=== PATIENT | female | born 1995 | race Hispanic/Latino ===

== ENCOUNTER 2017-08-25 19:11 | Emergency (ER) | payer BC, OTHER ==
[2017-08-25 19:31] LABS: Bilirubin Negative (Negative); Blood, Urine Large (Negative); Clarity CLOUDY (Clear); Glucose, Urine (Dipstick) Negative (Negative); Leukocyte Moderate (Negative); Nitrite Negative (Negative); Protein, Urine (Dipstick) Trace mg/dL (Neg-Trace); Specific Gravity, Urine 1.014 (1.002-1.036); Urobilinogen 0.2 mg/dL (0.2-1.0); pH, Urine 6.5 (5.0-9.0)
[2017-08-25 19:34] LABS: Bacteria/HPF 1+ HPF (None Seen); Hyaline Casts/LPF 4-6 HYALINE CAST LPF (0-3 Hyaline); Pathc Cast-AUWi Flag 1.45 (0-2.49)
[2017-08-25 19:35] LABS: Yeast-AUWi Flag 188.9 (0-25.0)
[2017-08-25 19:45] LABS: Yeast-All Forms None Seen HPF (None Seen)
[2017-08-25 20:02] LABS: #Basophils 0.1 thou/uL (0.0-0.2); #Eosinphils 0.3 thou/uL (0.0-0.7); #Lymphocytes 2.7 thou/uL (1.20-3.40); #Monocytes 0.7 thou/uL (0.11-0.59); #Neutrophils 5.2 thou/uL (1.40-6.50); %Basophils 0.6 % (0.0-1.0); %Lymphocytes 30.3 % (21.0-51.0); %Monocytes 7.6 % (0.0-10.0); %Neutrophils 58.5 % (42.0-75.0); Hemoglobin 12.9 g/dL (12.0-16.0); Mean Corpuscular HGB CONC 36.2 g/dL (32.0-36.0); Mean Corpuscular Hemoglobin 31.5 pg (27.0-31.0); Mean Corpuscular Volume 87.1 fL (78.0-98.0); Mean Platelet Volume 8.4 fL (7.4-10.4); Platelet Count 246 thou/uL (130-400); RBC Distribution Width 10.9 % (11.5-14.5); Red Blood Cell (RBC) Count 4.11 mill/uL (4.20-5.40); White Blood Cell (WBC) Count 8.9 thou/uL (4.8-10.8)
[2017-08-25 20:13] LABS: BHCG - Serum POSITIVE (NEGATIVE); Pregs Control Background? CLEAR/WHITE (CLR/WHITE); Pregs Control Bar Appear? YES (CONTROL BAR)
--- NOTE | 2017-08-25 21:07 | ULT ---
PELVIC ULTRASOUND: 08/25/17 HISTORY: 22-year-old female reporting spotting earlier today. TECHNIQUE: Multiplanar pina scale sonographic imaging of the pelvis obtained with transabdominal imaging. The ov torito are assessed with color flow/spectral analysis. FINDINGS: There is an intrauterine gestational sac present. The uterus measures 11.5 x 7.3 cm. There is a single pole within the gestational sac, demonstrating a heart rate of 165 beat s per minute. Right ovary measures approximately 3.5 x 1.9 cm and demonstrates normal blood flow. Left ovary measur es approximately 2.8 x 2.0 cm and demonstrates normal blood flow. BIOMETRY: BPD 1.4 cm 12 weeks, 0 days HC 6.3 cm 12 weeks, 3 days AC 5.2 cm 12 weeks, 1 day FL 0.7 cm 12 weeks, 2 days Average age based on ultrasound is 11 weeks, 5 days with estimated date of delivery on 03/11/18. There is a questionable very tiny area of subchorionic hemorrhage versus artifact, measuring in the 4 -5 mm range. IMPRESSION: Intrauterine gestation as detailed above. Questionable tiny subchorionic hemorrhage versus artifact. POS: [facility]
== END 2017-08-25 22:00 | disposition home or self-care (01) ==
LOC: ERS 19:11
DX: O20.9 Hemorrhage in early pregnancy, unspecified (principal); O23.41 Unspecified infection of urinary tract in pregnancy, first trimester; Z3A.12 12 weeks gestation of pregnancy
CPT/HCPCS: 36415; 76815; 81003; 81015; 84702; 84703; 85025; 86900; 86901; 87086; 87480; 87491; 87510; 87591; 87660

== ENCOUNTER 2018-03-09 21:00 | Inpatient (IN) | payer OTHER ==
[2018-03-16 21:40] VITALS: BMI 37.5
--- NOTE | 2018-03-16 22:00 | PDOC.FPROB ---
FMR OB H&P: HPI - History of Present Illness Chief Complaint: Post dated Induction of labor History of Present Illness: 22 yo at 41w dated by LMP and 10w6d presenting for post dates IOL. has been uncomplicated Occasional contractions. No LOF, Bleeding. +FM No BUCK, vision changes or RUQ pain Primary Care Physician: Oumou FMR OB H&P: Current - Care : 1 Para: 0 Gestational age: 41w0d Due date: 03/09/18 Dating Criteria: LMP consistent with 10w6d US Total weight gain: 12 Course/Complications: None - OB Labs Blood type: O RH: positive Antibody Screen: negative HIV: negative RPR: negative HepBsAg: negative Rubella: immune Gonorrhea: negative Chlamydia: negative Pap Smear: NILM 1 hour gtt: 113 A1c: 5.0 GBS: negative - Anatomy Survey Anatomy survey: Male fetus Anterior placenta Normal anatomy FMR OB H&P: History - Past Medical History PMH: PCOS - OB History OB History: G1PO - SYSTEM ADMINISTRATOR History SYSTEM ADMINISTRATOR History: Menarche 12yo PCOS with irregular menses No h/o STI - Surgical History Sx History: Negative - Social History Social History: . Denies tobacco, ETOH or drugs - Family History Family History: Hypertension ( father ) Type 2 Diabetes ( father; brother )Hypothyroidism ( sister ). Fibromyalgia ( mother ). FMR OB H&P: Medications - Current Home Medications: Medication Instructions Recorded Confirmed Type PNV No.118/Iron Fumarate/FA 03/16/18 History [ 19 Chewable Tablet] Allergies/Adverse Reactions: Allergies Allergy/AdvReac Type Severity Reaction Status Date / Time No Known Allergies Allergy Verified 03/16/18 21:37 FMR OB H&P: ROS - Review of Systems General: reports: fatigue. denies: fever/chills Eyes: denies: scotomas ENT: denies: nasal congestion, rhinorrhea, sore throat Cardiovascular: reports: edema. denies: chest pain Respiratory: denies: cough, congestion, shortness of breath Gastrointestinal: denies: abdominal pain, vomiting, diarrhea Genitourinary (Female): denies: dysuria, vaginal discharge, vaginal pain, vaginal bleeding, contractions Musculoskeletal: denies: pain Neurologic: denies: numbness, headache Integumentary: denies: itching, rash Psychological: denies: depression, anxiety FMR OB H&P: Vital Signs - Heart Tones Baseline: 125 Variability: moderate Acceleration: present Deceleration: absent Category: category 1 [place] contractions every: Occasional FMR OB H&P: Physical Exam - Physical Exam General: NAD, awake, alert and oriented HEENT: normocephalic and atraumatic, MMM, no scleral icterus, good dention Neck: supple, FROM Chest: non-tender to palpation General: no respiratory distress Abdomen: soft, gravid, non-tender Musculoskeletal: normal gait and station Neurological: sensation to pain,touch and proprioception grossly normal Skin: no rash, good tugor Lymphatic: no unusual bruising or bleeding Psychiatric: intact recent and remote memory, good judgement and insight, normal mood and affect - Pelvic Exam Vulva: normal hair distribution, no lesions, no discharge, no blood, normal rugae Cervix: no masses SVE: 2/75/-3, soft, posterior Mao score: 5 Membranes: intact Presentation: cephalic Estimated Weight: 7 lbs FMR OB H&P: A/P - Problem List (1) Post-term , 40-42 weeks of gestation Current Visit: Yes Status: Acute Code(s): O48.0 - POST-TERM Assessment and Plan: Admit for induction of labor Mao score 5, will start induction with pitocin and cervical ripening balloon GBS negative Cephalic by sutures FHT reassuring Desires natural delivery without epidural Anticipate vaginal delivery Discussion: Date/Time: 03/16/18 267 This H&P was discussed with [] and [] who agree with the above documentation and plan.
[2018-03-16] MEDS ORDERED: Ondansetron PF 4 MG/2 ML Vial IVP PRN (22:10)
[2018-03-16] MEDS ORDERED: Lidocaine 1% (PF) 30 ML VIAL SC PRN (22:10)
[2018-03-16] MEDS ORDERED: Promethazine HCl 25 MG/ML VIAL IM PRN (22:10)
[2018-03-16] MEDS ORDERED: NS / Oxytocin 40 units/1000ml 1,000 ML IV PRN (22:10)
[2018-03-16 23:19] LABS: Hemoglobin 13.2 g/dL (12.0-16.0); Mean Corpuscular HGB CONC 33.7 g/dL (32.0-36.0); Mean Corpuscular Hemoglobin 29.9 pg (27.0-31.0); Mean Corpuscular Volume 88.9 fL (78.0-98.0); Platelet Count 195 thou/uL (130-400); RBC Distribution Width 12.5 % (11.5-14.5); Red Blood Cell (RBC) Count 4.41 mill/uL (4.20-5.40); White Blood Cell (WBC) Count 9.3 thou/uL (4.8-10.8)
[2018-03-16] MEDS ORDERED: Butorphanol Tartrate 1 MG/ML VIAL SLOW IVP PRN (23:34)
[2018-03-16] MEDS: NS w/ Oxytocin 10 units 500 ML IV SCH (23:43)
[2018-03-17] LABS: HBSAg Index 0.27 S/CO (0-0.99); Hep B Surf Ag Non-Reactive S/CO (NonReactive); Syphilis Antibody Nonreactive (Nonreactive); Syphilis Antibody Index 0.04 S/CO (<1.00 Non-Reactive)
--- NOTE | 2018-03-17 02:14 | PDOC.LDPN ---
Labor & Delivery Progress Note - Subjective Subjective: painful contractions - Objective Abnormal vital signs: 140s/80s, patient in some pain. In between cxn 133/77 General: breathing through contractions Uterine fundus: non tender [place] contractions every: 2-6 min Plan: continue plan of care, labor augmentation -: SIUP -cervical ripening balloon in place -GBS negative -Cephalic by sutures -FHT reassuring, baseline 130, early decel present -Desires natural delivery without epidural -Anticipate vaginal delivery -BP in between cxns 133/77; she has had a couple borderline 140/80s blood pressures (possibly during cxn), continue to monitor.
[2018-03-17] MEDS: Lactated Ringer's 1,000 ML IV SCH ×2 (07:45→15:10)
--- NOTE | 2018-03-17 07:58 | PDOC.LDPN ---
Labor & Delivery Progress Note - Subjective Subjective: comfortable - Objective Vital signs reviewed and normal: yes General: NAD, resting FHT: category 1, variability present [place] contractions every: q2-4 min Other exam findings: blood pressure have improved after stadol Plan: continue plan of care, labor augmentation, pitocin for augmentation -: Check @ 0645 SIUP -cervical ripening balloon still firmly in place -GBS negative -Cephalic by sutures -FHT reassuring, baseline 130, good accels, mod variability -Desires natural delivery without epidural -Stadol has helped make her more comfortable -Anticipate vaginal delivery -BP improved with stadol, WNL
--- NOTE | 2018-03-17 08:16 | PDOC.EVN ---
Event Note - Event Note Event Note: Vital signs reviewed and normal: yes General: NAD, resting FHT: 125/ periods of minimal but mostly moderate variability/ accels present/no decels category 1 [place] contractions every: q2-4 min Plan: continue plan of care, labor augmentation, pitocin for augmentation -: Check @ 0800 SIUP -cervical ripening balloon in vaginal vault, removed. Exam 3.5/50/-3 -GBS negative -Cephalic by US -FHT reassuring -Desires natural delivery without epidural -Stadol prn pain -Anticipate vaginal delivery
[2018-03-17] MEDS ORDERED: Butorphanol Tartrate 1 MG/ML VIAL SLOW IVP PRN (09:32)
[2018-03-17] MEDS: Butorphanol Tartrate 1 MG/ML VIAL SLOW IVP SCH (09:33)
--- NOTE | 2018-03-17 12:25 | PDOC.EVN ---
Event Note - Event Note Event Note: Repeat cervical check unchanged from previous. Baby is very high in pelvis. FHTS 125/moderate variability/accels present/no decels. Cat I Tracing Contractions irregular, q3-5min on 18 miu of pitocin Will give a pitocin break for 1 hr and restart at that time.
--- NOTE | 2018-03-17 14:38 | PDOC.LDPN ---
Labor & Delivery Progress Note - Subjective Subjective: comfortable, painful contractions - Objective Vital signs reviewed and normal: yes General: NAD, resting, breathing through contractions Uterine fundus: non tender Dilation: 2 Effacement: 75% Station: -3 FHT: category 1, variability present [place] contractions every: irregular Other exam findings: FHR: 120-130; no decels, accels present Resuscitative measures: maternal IV fluids Plan: continue plan of care, pitocin for augmentation -: sIUP - Check: / - Pit restarted at 1400 after almost 2 hours off pit - Will recheck in 2 hours - Continue to monitor VS - Stadol for pain PRN - Desires natural delivery without epidural Continue plan of care
--- NOTE | 2018-03-17 16:52 | PDOC.LDPN ---
Labor & Delivery Progress Note - Subjective Subjective: comfortable, painful contractions - Objective Vital signs reviewed and normal: yes General: NAD, resting, breathing through contractions Dilation: 2 Effacement: 75% Station: -3 FHT: category 1, variability present [place] contractions every: irregular Resuscitative measures: maternal IV fluids, maternal position change - Assessment (1) Post-term , 40-42 weeks of gestation Code(s): O48.0 - POST-TERM Current Visit: Yes Status: Acute Plan: continue plan of care, pitocin for augmentation -: sIUP - Check: /-3 - unchanged from last check - Will recheck in 2 hours again - Continue to monitor VS - Stadol for pain PRN - Desires natural delivery without epidural Continue plan of care Addendum - Attending - Attending Attestation Date/Time: 03/17/181808 I personally evaluated the patient and discussed the management with Dr. Berry I agree with the History, Examination, Assessment and Plan documented above with any addition or exceptions noted below. Cervix is 3.5/50/-3, soft, posterior FHTs-120s/moderate variability/accels present/no decels Contractions q 6-7min, pitocin at 10 miu No cervical change since 8am after balloon out. Unable to AROM due to baby being very high in pelvis and not well engaged Will continue to attempt induction with pitocin however discussed likely need for delivery for failed induction of labor. Last PO intake around 12pm. Will wait until 8pm and recheck at that time. Pt agreeable to plan.
[2018-03-17] MEDS: NS w/ Oxytocin 10 units 500 ML IV SCH (19:05)
[2018-03-17] MEDS ORDERED: CEFAZOLIN/Water 2 GM/20 ML SYRINGE SLOW IVP SCH (20:30)
[2018-03-17] MEDS ORDERED: Bicitra 30 ML UDCUP PO SCH (20:30)
[2018-03-17] MEDS ORDERED: Azithromycin 500 MG in Sodium Chloride 0.9% 250 ML 250 ML IVPB SCH (20:30)
--- NOTE | 2018-03-17 20:44 | PDOC.EVN ---
Event Note - Event Note Event Note: Cervix rechecked 3.5/50/-3. No change since 8am. FHT: 120/ moderate variability/accels present/no decels. Discussed with patient and spouse that we have had no change in cervix despite high dose pitocin. Unable to AROM due to station and head not well engaged. Pt would like to proceed with delivery due to failed induction of labor. Risks of delivery were discussed with patient and spouse, including but not limited to risk of bleeding, infection, damage to structures surrounding uterus, need for hysterectomy for life saving purposes. All questions were answered.
[2018-03-17] MEDS ORDERED: CEFAZOLIN 2 GM/50 ML-DEXTROSE 2 GM in Premix Bag 1 BAG IVPB SCH (20:45)
[2018-03-17] MEDS ORDERED: Fentanyl 100 MCG/2 ML VIAL ONE (22:15)
[2018-03-17] MEDS ORDERED: Morphine PF 1 MG/ML SYR ONE (22:15)
[2018-03-17] MEDS ORDERED: Ketorolac Tromethamine 30 MG/ML VIAL ONE (22:16)
[2018-03-17] MEDS ORDERED: ePHEDrine/0.9% NaCl/PF SYRINGE 50 mg/10 ml ONE (22:16)
[2018-03-17] MEDS ORDERED: Dexamethasone 4 mg/ml Vial ONE (22:16)
[2018-03-17] MEDS ORDERED: PHENYLEPHRINE-NS 100 MCG/ML 10 ML SYRINGE ONE (22:16)
[2018-03-17] MEDS ORDERED: Ondansetron PF 4 MG/2 ML Vial ONE (22:16)
[2018-03-17] MEDS ORDERED: Oxytocin 10 UNITS/ML VIAL ONE (22:16)
[2018-03-17] MEDS ORDERED: L&D-Morphine 4 MG/ML VIAL SLOW IVP PRN (22:53)
[2018-03-17] MEDS ORDERED: Promethazine HCl 25 MG SUPP PR PRN (22:53)
[2018-03-17] MEDS ORDERED: diphenhydrAMINE 50 MG/ML VIAL IVP PRN (22:53)
[2018-03-17] MEDS ORDERED: Ondansetron HCl/PF 4 MG/2 ML Vial IVP PRN (22:53)
[2018-03-17] MEDS ORDERED: Ondansetron PF 4 MG/2 ML Vial IVP PRN (22:53)
[2018-03-17] MEDS ORDERED: Naloxone HCl 0.4 mg/ml Vial IV PRN (22:53)
[2018-03-17] MEDS ORDERED: Promethazine HCl 25 MG/ML VIAL IM PRN (22:53)
[2018-03-17] MEDS ORDERED: HYDROmorphone 2 MG/ML VIAL SLOW IVP PRN (22:53)
[2018-03-17] MEDS ORDERED: Hydrocerin (Eucerin) Cream 120 gm Jar TOP PRN (22:53)
[2018-03-17] MEDS ORDERED: Meperidine HCl/PF 25 MG/ML VIAL SLOW IVP PRN (22:53)
[2018-03-17] MEDS ORDERED: Naloxone HCl 0.4 mg/ml Vial IVP PRN ×2 (22:53)
[2018-03-17] MEDS ORDERED: Ketorolac Tromethamine 30 MG/ML VIAL IVP SCH (23:00)
[2018-03-17] MEDS ORDERED: Communication Order-Pharmacy FS SCH (23:00)
--- NOTE | 2018-03-18 00:15 | PDOC.OPDEL ---
OB Operative/Delivery Note Delivery Dr/Surgeon: Oumou Assist: Sriram Pre-Delivery Diagnosis: arrest of dilation, medically indicated induction (late term induction of labor) Procedure/Post Delivery Dx: primary low transverse CS Weeks gestation: 41 Anesthesia: spinal - Findings A Sex: male Weight: 3.343 kg (7 lbs 6 oz) - 1 min: 7 - 5 min: 9 - Additional Findings/Plan Placenta delivered: spontaneous findings: low transverse hysterotomy without extension Compilations/Other Findings: Procedure Note Date of Procedure: 03/17/18 Attending Surgeon: Oumou Resident Surgeon: Sriram Procedure: Primary low transverse caesarean section Preoperative Diagnosis: 1)Late Term intrauterine 2)Arrest of dilation Postoperative Diagnosis: 1)Late Term intrauterine , delivered Anesthesia: spinal Indications: The patient is a 22 year old G1 female at 41weeks gestation who initially presented for a late term induction of labor, now with arrest of dilation, and presents currently for a primary low transverse section. Procedure in Detail: After risks, benefits, and alternatives were explained to the patient, she gave informed consent. Pre-operative antibiotics included Cefazolin 2 gram IV and Azithromicin 500mg IV. The patient was taken to the operating room and spinal anesthesia was initiated. She was placed in the supine position with a left tilt and prepped and draped in usual sterile fashion. A Pfannenstiel incision was made with a scalpel and carried down to the level of the fascia which was sharply nicked. The fascial cut was extended bilaterally using blunt dissection. The inferior and superior edges of the cut fascial edges were elevated with Leonel clamps and the underlying rectus muscles were sharply and bluntly dissected free. The recti were divided digitally and retracted manually. The peritoneum was entered bluntly and retracted manually. The Darian-O retractor was placed. A low transverse score was made with the scalpel and the uterus was entered in the midline with the scalpel. Clear fluid was seen. The hysterotomy was extended manually in the cephalocaudal direction. The infant was noted to be vertex and was delivered by vacuum assisted delivery with fundal pressure. Mouth and nares were bulb suctioned. Cord clamped and cut and grossly normal male infant was handed to waiting nurse. Cord blood was obtained. Placenta was spontaneously extracted, found to be intact with 3 vessel cord and discarded. The uterus was externalized and the endometrium was curetted with a dry lap. The uterus was closed with a running locking #1 Monocryl suture followed by a running non- locking #1 Monocryl imbricating suture,followed to two figure of eight stitches thrown using a #2 Monocryl. Following this hemostasis was noted. The abdomen was suctioned free of clots. The uterus was internalized and the hysterotomy was again noted to be hemostatic. The muscle was closed with a horizontal mattress stitch using an 0-Vicryl suture. The fascia was closed with a running non-locking 0-Vicryl suture. The subcutaneous tissue was irrigated and few bleeders bovied. The subcutaneous tissue was closed with three simple interrupted stitches using 3-0 Chromic. The skin was closed using a 3-0 Monocryl jeff suture. All counts were correct. The patient tolerated the procedure well and was taken to the recovery room in stable condition. Estimated Blood Loss: 850 ml Complications: None Findings: Grossly normal male infant with Apgars of 7 & 9. Grossly normal placenta with 3 vessel cord discarded. Drains: Daily to gravity draining clear urine Addendum - Attending - Attending Attestation Date/Time: 03/18/18 [id number] I performed the entire delivery assisted by Dr. Dawkins
[2018-03-18] MEDS ORDERED: HYDROcodone/Acetaminophen 5/325 mg Tablet PO PRN (01:29)
[2018-03-18] MEDS ORDERED: Adacel (T-DAP) 0.5 ML SYRINGE IM ONE (01:29)
--- NOTE | 2018-03-18 04:25 | PDOC.EVN ---
Event Note - Event Note Event Note: 0400 Mom is feeling well, states she is a little light headed. Has been snuggling baby. Normal lochia. O: P 102, R 20, BP 120/60, T 97.7 Eyes: PERRLA HR: RR, no murmurs rubs or gallops, no edema, pulses 2+ bilat Lungs: BCTA Abd: soft, appropriately TTP, fundus firm A&P S/P for failure to progress -continue routine post care -Morning labs to include H/h -Continue to monitor
[2018-03-18] MEDS: Lactated Ringer's 1,000 ML IV SCH (04:59)
[2018-03-18 07:18] LABS: Hemoglobin 9.6 g/dL (12.0-16.0); Mean Corpuscular HGB CONC 33.3 g/dL (32.0-36.0); Mean Corpuscular Volume 90.3 fL (78.0-98.0); Mean Platelet Volume 10.8 fL (7.4-10.4); Platelet Count 191 thou/uL (130-400); RBC Distribution Width 12.3 % (11.5-14.5); Red Blood Cell (RBC) Count 3.18 mill/uL (4.20-5.40); White Blood Cell (WBC) Count 16.7 thou/uL (4.8-10.8)
--- NOTE | 2018-03-18 07:20 | PDOC.PP ---
Post Progress Note Post Day #: 1 Subjective: 22 yo [id number] POD #1 s/p uncomplicated PLTCS for failed induction of labor/ arrest of dilation at 3.5cm Feeling well this morning. Pain is controlled. Feels mildly dizzy upon waking but otherwise feeling well PO intake tolerated: no (Has only had ice chips so far) Flatus: no Vital Signs (12 hours) Temp Pulse Resp BP Pulse Ox 03/18/18 04:30 98.0 F 113 H 18 116/56 L 03/18/18 03:00 97.7 F 88 20 120/60 03/18/18 01:55 97.6 F 69 20 120/60 99 Weight Weight 90.265 kg - Physical Examination General: NAD Cardiovascular: no m/r/g, RRR Respiratory: non-labored breathing Abdominal: lochia (WNL), no distention, appropriately TTP Fundus firm & at: 1 cm below umbilicus Skin: CS incision dry & intact (Covered with clean bandage) Neurological: no gross focal deficits Psychiatric: A&Ox3, normal affect Result Diagrams: 03/16/18 23:09 Additional Labs: Post Labs Blood Type O POSITIVE 03/16/18 23:09 Hep Bs Antigen Non-Reactive S/CO (NonReactive) 03/16/18 23:09 (1) Post-term , 40-42 weeks of gestation Code(s): O48.0 - POST-TERM Status: Resolved (2) Status post delivery Code(s): Z98.891 - HISTORY OF UTERINE SCAR FROM PREVIOUS SURGERY Status: Acute - Assessment/Plan Stable POD #1 Doing well Urine output adequate. Advance diet as tolerate D/C [place] later today Encourage ambulation. Postop H+H pending. Continue routine postoperative care
[2018-03-18] MEDS: Ketorolac Tromethamine 30 MG/ML VIAL IVP PRN ×2 (09:24→15:29)
[2018-03-18] MEDS ORDERED: Sodium Chloride 0.9% 500 ML IV SCH (21:30)
--- NOTE | 2018-03-18 21:34 | PDOC.EVN ---
Event Note - Event Note Event Note: Called to patient bedside. Pt having pleuritic chest pain that she described as pressure substernal and left sided with sharp pains radiating to left shoulder with inspiration. Patient denies passing stool or flatus, but states she has voided. She states she has been eating/drinking well today. She states her shoulder hurts more when she moves her head. Lochia has been normal. O: T 98, P 114, BP 131/60, 96% on RA, R 20 HEENT: eyes perrla, sclera normal and non-icteric, MMM Cardiac: tachycardic, 1/6 systolic murmur, regular rhythm; cap refill >2 sec Chest: pain to palpation over sternum and left shoulder Lungs: BCTA Abdomen: Diffusely distended and very tender, fundus firm and above umbilicus. Incision dry and intact. Lochia WNL Extremities: no edema A&P: PE vs Constipation vs PPH vs other. O2 sats stable, so this is most likely not a PE. Patient abdomen is distended not on a bowel regimen. Will start Sen/doc and miralax regimen. Will recheck her H/H to check for worsening anemia/ developing PPH. 500 NS bolus as patient is tachycardic. Attending Note: 03/19/18 0030 Residents called to discuss case. STAT H&H ordered. If signs of blood loss anemia, recommend STAT CT scan. Continue IVFs, strict I/Os, and frequent vitals. Adán
[2018-03-18] MEDS ORDERED: Ketorolac Tromethamine 30 MG/ML VIAL IVP SCH (22:00)
[2018-03-18 22:36] LABS: Hemoglobin 6.5 g/dL (12.0-16.0); Mean Corpuscular HGB CONC 33.8 g/dL (32.0-36.0); Mean Corpuscular Hemoglobin 30.5 pg (27.0-31.0); Mean Corpuscular Volume 90.2 fL (78.0-98.0); Mean Platelet Volume 10.1 fL (7.4-10.4); Platelet Count 168 thou/uL (130-400); RBC Distribution Width 12.6 % (11.5-14.5); Red Blood Cell (RBC) Count 2.14 mill/uL (4.20-5.40); White Blood Cell (WBC) Count 9.2 thou/uL (4.8-10.8)
[2018-03-19] MEDS: Sodium Chloride 0.9% 1,000 ML IV SCH ×2 (00:42→10:30)
--- NOTE | 2018-03-19 01:51 | PDOC.EVN ---
Event Note - Event Note Event Note: S: Patient's pain refering to L shoulder initially improved with ambulating and belching, however patient's abdominal pain is worsening. She is still not passing flatus or had a BM. O: General: patient appears distressed and in pain. Crying at bedside Abdomen: soft, diffusely tender to palpation. Imaging: CT Abdomen/pelvis w and wo contrast showed large ventral pelvis hematoma, anterior to urinary bladder. [id number] cm. Discussed via phone by radiologist. Official report pending. A&P: -Discussed CT results with patient and Dr. Sheppard -Consulted Dr. Gurvinder Sheppard, Mohs Surgeon/General Dermatologist. Appreciate recommendations. Patient is to be taken back for hematoma evacuation via X-lap. -administer 2 units of blood -Continue to monitor Attending Note: 03/19/18 0100 Patient seen and evaluated. Dr. Sheppard consulted to assist with exploratory lap. Initiated transfusion protocol. Coags pending. R/B/A discussed. Consents signed. Questions and concerns addressed. Adán
[2018-03-19] MEDS ORDERED: Midazolam HCl 2 mg/2 ml Vial ONE (02:09)
[2018-03-19] MEDS ORDERED: Fentanyl 100 MCG/2 ML VIAL ONE ×2 (02:09→03:54)
[2018-03-19] MEDS ORDERED: CEFAZOLIN/Water 2 GM/20 ML SYRINGE SLOW IVP SCH (02:30)
[2018-03-19] MEDS ORDERED: Sodium Chloride 0.9% 10 ML ONE (02:32)
--- NOTE | 2018-03-19 02:44 | CON ---
DATE OF CONSULTATION: 03/19/2018 REASON FOR CONSULTATION: Acute abdominal pain and concern for acute postoperative intraabdominal bleeding and anemia. BRIEF HISTORY: Ms. Viola Flores is a patient of the family medicine residents, who was admitted on 03/16/2018 for a planned induction of labor for prolonged at 41 weeks. Her is reported uncomplicated. During the patient's induction of labor, a section was indicated. According to the residents and the patient's nurse, the patient had a failed induction at 3 cm and underwent an uncomplicated primary low-transverse section on March 17, 2018. On postoperative day #1, the patient complained of some dizziness, but review of postoperative progress notes is otherwise unremarkable. I was called at approximately 1:45 a.m. this morning after the patient's status was noted to have changed. I was called with the report of the patient with an acute abdomen that was exquisitely tender in a patient who was tearful, who had otherwise been stable. A CT scan had been ordered prior with a verbal report of an approximate 18-cm intrapelvic hematoma anterior to the uterus. Her hemoglobin was also noted to have decreased from approximately 13 at the time of admission to 9 this morning on postoperative day 1, to 6.5 on repeat at 2200 hours 03/18/2018. The findings were briefly discussed with me over the phone and I then went to see the patient with the family medicine residents. On arrival to the patient's room, she was tearful and in apparent distress due to her discomfort. She reported pain in her left shoulder that was radiating up her neck, pain taking deep breaths, and pain across her abdomen. She reported normal lochia. On physical exam, she was noted to have a tender abdomen. At this time, we discussed the findings of the imaging study as well as her decrease in her hemoglobin. I discussed the indication for diagnostic laparotomy with the patient as well as the indication for blood transfusion. Her spouse was at the bedside with the baby. Their questions were answered. The family medicine attending, Dr. Sarabia was notified as well as Anesthesia and the OR. Job ID: [id number] MTDD
[2018-03-19] MEDS ORDERED: Ondansetron HCl/PF 4 MG/2 ML Vial IVP PRN (03:09)
[2018-03-19] MEDS ORDERED: Promethazine HCl 25 MG/ML VIAL SLOW IVP PRN (03:09)
[2018-03-19] MEDS ORDERED: Promethazine HCl 25 MG/ML VIAL IM PRN ×2 (03:09→03:10)
[2018-03-19] MEDS ORDERED: Ondansetron PF 4 MG/2 ML Vial IVP PRN (03:10)
[2018-03-19] MEDS ORDERED: diphenhydrAMINE 50 MG/ML VIAL IVP PRN (03:10)
[2018-03-19] MEDS ORDERED: diphenhydrAMINE 50 MG/ML VIAL IM PRN (03:10)
[2018-03-19] MEDS ORDERED: Naloxone HCl 0.4 mg/ml Vial IV PRN (03:10)
[2018-03-19] MEDS ORDERED: Zolpidem Tartrate 5 MG TAB PO PRN (03:10)
[2018-03-19] MEDS ORDERED: diphenhydrAMINE 25 MG CAP PO PRN (03:10)
[2018-03-19] MEDS ORDERED: fentaNYL Citrate/PF 2,000 MCG in Sodium Chloride 0.9% 60 ML IV PRN (03:10)
[2018-03-19] MEDS ORDERED: Communication Order-Pharmacy FS SCH (03:15)
[2018-03-19] MEDS ORDERED: Albumin 25% 100 ML ONE (03:19)
[2018-03-19] MEDS ORDERED: diphenhydrAMINE 50 MG/ML VIAL ONE ×2 (03:30→13:49)
--- NOTE | 2018-03-19 03:36 | PDOC.OP ---
Operative Note - Operative Note Operative Note: Post Op Note PreOp Dx: POD2 1CS, hemoperitoneum, acute abdominal pain PostOp Dx: same Surgeon: DO Silver Assist: MD Cornell EBL: 800-1000ml formed clot UOP: 300ml Intraoperative transfusion 2U PRBCS and 1U FFP Procedure: Exploratory laparotomy, evacuation of clot,oversew of rectus abdominal muscle Findings: 800-1000ml formed clot intraperitoneal as well as above the between rectus fascia and muscle, small area of bleeding on rectus muscle, no acute bleeding process identified, hysterotomy hemostatic Post op: to PACU, [employer], serial CBC and coags, advance diet slowly, will comanage with FP service and OBH service
--- NOTE | 2018-03-19 04:39 | OP ---
DATE OF PROCEDURE: 03/19/2018 PREOPERATIVE DIAGNOSES: 1. Postop day #2 from primary low-transverse section. 2. Hemoperitoneum. 3. Acute abdomen. POSTOPERATIVE DIAGNOSES: 1. Postop day #2 from primary low-transverse section. 2. Hemoperitoneum. 3. Acute abdomen. PROCEDURE: Diagnostic laparotomy SURGEON: Gurvinder Sheppard DO NCR OPERATOR: Cuca Sarabia MD ANESTHESIA: GETA per Dr. Littleojhn. COMPLICATIONS: None. Intraoperative transfusion of 2 units of packed red blood cells and 1 FFP. URINE OUTPUT: 300 mL. ESTIMATED BLOOD LOSS: 800 to 1000 mL formed clot evacuated. No active bleeding during the surgical portion of the case. OPERATIVE FINDINGS: 1. 800 to 1000 mL of formed clot between the rectus abdominis muscles and fascia as well as in the peritoneal cavity. 2. Low transverse hysterotomy with hysterotomy closure intact and hemostatic. 3. Normal-appearing fallopian tubes and ovaries bilaterally. 4. Normal-appearing bladder. 5. Small amount of active bleeding noted on the rectus abdominis muscles to the right of midline, but was hemostatic after it was oversewn. 6. Normal-appearing postsurgical fascia. 7. Normal-appearing postsurgical subcutaneous tissue. PROCEDURE INDICATION: Ms. Viola Thomas was noted to have acute increase in her postsurgical abdominal pain with a drop in her hemoglobin late postoperative day #1 and was evaluated by the [facility]. I was consulted after a CT scan reported hemoperitoneum of approximately 18 cm formed fluid collection suspicious for clot and a noted drop in her hemoglobin from 9 to 6 earlier in the day. The patient was examined, noted to have an acute abdomen and was counseled for the indication for exploratory laparotomy. DESCRIPTION OF PROCEDURE: The patient was taken back to the OR with IV fluids running. When she was in the OR, she was placed in dorsal supine position. SCDs were placed on her lower extremities. A Daily catheter was placed and the abdomen was prepped with Betadine and draped in a normal fashion for exploratory laparotomy. Once the patient was asleep, the surgeons were scrubbed in. The Dermabond layer was removed from the skin. The previous Pfannenstiel skin incision was re- incised with a scalpel. The suture material was removed. Subcutaneous tissue was entered with a scalpel. After the subcutaneous layer was opened and the fascia was reached, oozing of blood in small mixed clot was noted between the fascial sutures. The fascial sutures were incised and removed. Immediately on entry to the fascia, large formed clots were evacuated from between the fascia and the rectus muscle. No obvious areas of bleeding were noted to this point in the case. The rectus muscles were closed with one mattress suture that was noted to be intact. The suture was removed. A significant amount of blood and clot were then evacuated from the peritoneal cavity. After the majority of the large clot was removed, an Darian O retractor was placed into the abdominal peritoneal cavity. The uterus was identified. The hysterotomy was inspected with no obvious bleeding noted. The peritoneal cavity was then copiously irrigated and suctioned dry with irrigation running clear. The pelvis, omentum, uterus, hysterotomy, and bladder were all inspected. No areas of bleeding were identified. The hysterotomy was inspected in detail with the hysterotomy sutures noted to be intact. After it was clear, there was no intraperitoneal process causing the bleeding. The Darian O retractor was removed from the abdominal cavity. The rectus muscle and fascia were inspected in detail with only a small area of bleeding noted from the right medial edge of the rectus fascia. This bleeding edge was oversewn with 2 [id number] sutures with hemostasis noted. The rectus muscle and fascia were noted to be infiltrated superficially with formed clot. The rectus muscles and fascia were copiously irrigated and very closely inspected. No distinct area of bleeding could be identified. The rectus muscles were suspicious for recent bleeding. After an extended period of observation, the hysterotomy was inspected again with no bleeding noted. There was no blood noted to have accumulated in the posterior or paracolic gutters. No blood was noted to have accumulated between the bladder and the uterus. A layer of FloSeal was applied over the rectus abdominis muscles. Pressure was applied over the hemostatic agent for 3 minutes as prescribed. After this was done, the clean sponge was removed and no areas of bleeding were noted. The rectus fascia was reapproximated from corner to corner and tied together in the midline with O PDS suture. Subcutaneous tissue was irrigated and dried with no areas of bleeding noted. Subcutaneous tissue was reapproximated with 3 interrupted chromic sutures. The skin was reapproximated with sterile stapler and a pressure dressing was applied. During the procedure, the patient received 2 units of packed red blood cells and 1 unit of FFP. Postoperative plans include serial CBC and coagulation panel. She has 2 additional units of packed red blood cells on hold. She received 2 g of Ancef during the procedure. The WEAVER HAND was ordered by anesthesia for postoperative pain management and the postoperative plan of care was reviewed with her primary team and the [facility]. The findings were discussed with the patient's family. Job ID: [id number] MTDD
[2018-03-19] MEDS ORDERED: Simethicone Chewable 80 MG TAB PO PRN (05:37)
[2018-03-19] MEDS ORDERED: Lanolin Ointment 7 GM TUBE TOP PRN (05:37)
[2018-03-19] MEDS ORDERED: Acetaminophen 325 MG TAB PO PRN (05:37)
[2018-03-19] MEDS ORDERED: Bisacodyl 10 MG SUPP PR PRN (05:37)
[2018-03-19 06:23] LABS: FSP-Qualitative ABNORMAL (Normal); FSP-Semiquantitative >=5 & <20 mcg/mL (Less than 5)
[2018-03-19 06:40] LABS: Fibrinogen 496 mg/dL (253-463)
[2018-03-19 06:42] LABS: PTT 30.7 SEC (22.9-36.1); Prothrombin Time 13.1 SEC (12.0-14.7)
[2018-03-19 06:54] LABS: Platelet Count 159 thou/uL (130-400)
--- NOTE | 2018-03-19 07:16 | PDOC.PP ---
Post Progress Note Post Day #: 2 Subjective: 22 yo [id number] POD #2 s/p PLTCS for failed induction of labor/arrest of dilation at 3.5cm, and POD 1 from exploratory laparotomy, evacuation of clot, oversew of rectus abdominal muscle s/p 2 units PRBCs and 1unit FFP. On exam this morning, patient is feeling well this morning. Pain is controlled. She states her mouth is dry. She is no longer having abdominal pain or pain between her shoulders. Patient resting in bed during exam. PO intake tolerated: yes Vital Signs (12 hours) Temp Pulse Resp BP Pulse Ox 03/19/18 06:30 111 H 20 131/68 96 03/19/18 05:55 97.4 F L 104 H 20 136/68 97 03/19/18 05:30 97 20 132/72 97 03/19/18 04:50 97.9 F 100 20 134/65 99 03/18/18 22:40 99.1 F 126 H 20 102/50 L 99 03/18/18 20:37 98.5 F 114 H 20 131/60 96 Weight Weight 90.265 kg - Physical Examination General: NAD Cardiovascular: no m/r/g, RRR Respiratory: clear to auscultation bilaterally, non-labored breathing Abdominal: + bowel sounds, no distention Fundus firm & at: level of umbilicus Skin: CS incision dry & intact, no rash (allergic reaction rash from betadine receding, present on bilateral upper thighs) Psychiatric: A&Ox3, normal affect Result Diagrams: 03/19/18 15:45 Additional Labs: Post Labs Blood Type O POSITIVE 03/16/18 23:09 Hep Bs Antigen Non-Reactive S/CO (NonReactive) 03/16/18 23:09 (1) Post-term , 40-42 weeks of gestation Code(s): O48.0 - POST-TERM Status: Resolved (2) Hemoperitoneum Code(s): K66.1 - HEMOPERITONEUM Status: Acute - Assessment/Plan POD #2 from PLTCS - Urine output adequate - Advance diet as tolerate - Encourage ambulation - Continue postoperative care - garden consultant POD 1 from ex lap for evacuation of hemoperitoneum CT showing 18cm hematoma - Patient's pain much improved this AM - Allergic reaction to betadine - will continue steroids today and dc tomorrow - Continue to monitor symptoms - Tylenol and motrin PRN for pain - Postop Hgb of 8 s/p 2 u PRBCs and 1 u FFP; Will re-evaluate for symtpoms later today Dispo: monitor symptoms, discharge in 1-2 days Case discussed with Dr. Sarabia Addendum - Attending - Attending Attestation Date/Time: 03/19/18 1000 I personally evaluated the patient and discussed the management with Dr. Berry I agree with the History, Examination, Assessment and Plan documented above with any addition or exceptions noted below. 22 yo female s/p PLTCS 2/2 failed IOL on 03/17/18 at 2255 HD#3 POD#2 - PLTCS POD#1 - ex lap 2/2 hemoperitoneum Patient still very sleep from surgery. Denies pain. Currently on JOB COACH/JOB DEVELOPER pump. Daily in place draining clear urine. Adequate UOP. Lochia appropriate. Pressure bandage in place. Hives resolving. VS reviewed. Labs reviewed. Imaging reviewed. s/p 2 uPRBC, 1 uFFP PE: Agree with resident documented PE. Sleepy. AAO x3. RRR. 2/6 systolic flow murmur. CTA bilaterally. Nontender abdomen. No rebound. Bandage clean and dry. No longer with hives to torso. Continues to have hives present to anterior upper thighs bilaterally. Daily in place. 1. s/p PLTCS 2/2 failed IOL with VA delivery: Routine pp care. Monitor for bowel activity. Risk for ilus. Pain controlled on JOB COACH/JOB DEVELOPER pump. 2. Hemoperitoneum s/p ex lap: EBL 1000 ml clot evacuated from rectus abdominus layer. Histerotomy intact and dry. Doing well. Pain controlled. Trend hemogram today. Transfuse as needed. Strict I/Os. Continue IVFs at this time. 3. Urticarial Reaction: Betadine prep from ex lap. Added to Allergies. Continue steroids today. Added H2 and oral antihistamine x 24 hours. 4. Risk for ilus: On narcotics along with 2 abdominal surgeries. Monitor closely. Advance food as tolerated. Start bowel regiment. 5. Blood loss anemia: Trend. Transfuse as needed. Attempt goal of 11/14. Consider iron infusion prior to d/c to home. 6. Mild consumptive coagulopathy: Coags pos. PLT stable. s/p uFFP. Monitor. 7. Breast feeding 8. Contraception: Unsure 9. BMI 38: If unable to ambulate tomorrow will start Lovenox. Otherwise continue SCDs for DVT ppx. Continue close inpatient monitoring. Trend labs today. Strict I/Os. Adán
[2018-03-19 07:49] LABS: Mean Corpuscular HGB CONC 33.1 g/dL (32.0-36.0); Mean Corpuscular Volume 87.7 fL (78.0-98.0); Mean Platelet Volume 10.2 fL (7.4-10.4); Platelet Count 163 thou/uL (130-400); RBC Distribution Width 13.6 % (11.5-14.5); Red Blood Cell (RBC) Count 2.75 mill/uL (4.20-5.40); White Blood Cell (WBC) Count 10.1 thou/uL (4.8-10.8)
[2018-03-19] MEDS: Lactated Ringer's 1,000 ML IV SCH ×2 (08:29→16:01)
[2018-03-19] MEDS: Ibuprofen 800 MG TAB PO SCH ×3 (08:29→21:39)
[2018-03-19] MEDS: Famotidine 20 MG TAB PO SCH ×2 (08:49→21:39)
[2018-03-19] MEDS: Loratadine 10 MG TAB PO SCH (08:49)
[2018-03-19] MEDS: Docusate Calcium (SURFAK) 240 MG CAP PO SCH ×2 (08:49→21:39)
[2018-03-19] MEDS: Prenatal Vitamin 1 TAB PO SCH (08:50)
[2018-03-19] MEDS ORDERED: Polyethylene Glycol 3350 17 GM Packet PO SCH (09:00)
[2018-03-19] MEDS ORDERED: Proctozone-HC 2.5% Cream 30 GM TUBE TOP SCH (09:00)
[2018-03-19] MEDS ORDERED: Senokot S 8.6-50 MG TAB PO SCH (09:00)
--- NOTE | 2018-03-19 09:24 | CT ---
PRELIMINARY REPORT/[facility]/EMERGENCY AFTER HOURS PROCEDURE: Addendum created by Aime Herrera MD on 03/19/2018 1:07 AM Central Time ([place] & En) Findings were discu ssed with ESTELITA ANDRE at 03/19/2018 1:07 AM CENSUS TAKER. Initial Report created on 03/19/2018 1:04 AM Central Time ([place] & En) EXAM: CT Abdomen and Pelvis With Contrast EXAM DATE/TIME: 03/19/2018 12:14 AM CLINICAL HISTORY: 22 years old, female; Pain; Abdominal pain; Acute; Patient HX: PT had done yesterday. Concr ened for intra abdominal bleeding. PT C/O pain and bloating. Pain has gotten worse since csect. No ot her surgery TECHNIQUE: Axial computed tomography images of the abdomen and pelvis with intravenous contrast. Coronal reforma tted images were created and reviewed. COMPARISON: No relevant prior studies available. FINDINGS: Lower thorax: No acute findings. ABDOMEN: Liver: Normal. No mass. Gallbladder and bile ducts: Normal. No calcified stones. No ductal dilation. Pancreas: Normal. No ductal dilation. Spleen: Normal. No splenomegaly. Adrenals: Normal. No mass. Kidneys and ureters: There is atrophy and parenchymal scarring of the left kidney. The right kidney i s unremarkable. Stomach and bowel: Normal. No obstruction. No mucosal thickening. Appendix: The appendix is unremarkable and seen best on axial image 45 of series 2. PELVIS: Bladder: Unremarkable as visualized. Reproductive: There is an enlarged uterus. ABDOMEN and PELVIS: Intraperitoneal space: See Soft Tissues Finding. Bones/joints: No acute fracture. No dislocation. Soft tissues: There are postoperative changes of likely recent section with small quantity of intraperitoneal free air or, soft tissue emphysema involving the ventral pelvic wall and subcutane ous edema or cellulitis of the ventral pelvic wall. There is discrete dense hematoma in the ventral p faviola with the hematoma measuring approximately 18.4 x 7.6 x 9.6 cm. There is additional mixed attenuation likely more dilute hemorrhage in the bilateral paracolic gutters extending up into the abdomen. No obvious IV contrast extravasation/active arterial bleeding within the region of hemat sandee. Vasculature: See Soft Tissues Finding. Lymph nodes: Normal. No enlarged lymph nodes. IMPRESSION: 1. There are postoperative changes of likely recent section with small quantity of intraperi toneal free air, soft tissue emphysema involving the ventral pelvic wall and subcutaneous edema or ce llulitis of the ventral pelvic wall. 2. There is discrete dense hematoma in the ventral pelvis with the hematoma measuring approximately 1 8.4 x 7.6 x 9.6 cm. There is additional mixed attenuation likely more dilute hemorrhage in the bilate ral paracolic gutters extending up into the abdomen. No obvious IV contrast extravasation/active arterial bleeding within the region of hematoma. Thank you for allowing us to participate in the care of your patient. Dictated and Authenticated by: Aime Herrera MD 03/19/2018 1:04 AM Central Time ([place] & En) FINAL REPORT EMERGENCY AFTER HOURS CT ABDOMEN AND PELVIS PERFORMED WITH CONTRAST ENHANCEMENT: Date: 03/18/18 HISTORY: Patient had a done yesterday. Concern for intra-abdominal bleeding. FINDINGS: The lung bases are clear. The liver, spleen, pancreas, and gallbladder regions all appear unremarkable. Right and left adrenal glands are normal in appearance. There is atrophy and scarring involving the l eft kidney with normal appearing right kidney. The left kidney only measures approximately 7.7 cm in length. No significant periaortic or mesenteric adenopathy. Small amount of fluid is seen adjacent to the liver with more pronounced free fluid in the paracolic gutter region. There is a large higher at tenuation mass which appears to be at least partially related to the rectus abdominus musculature and I feel this is almost entirely within the muscle, although the free fluid in the paracolic gutters c ould indicate some blood in this region. This would suggest a large hematoma. It measures 8.3 cm AP x 7.0 cm transverse and approximately 10.0 cm superior-inferior dimension. The uterus is enlarged, con sistent with recent . Free air within the abdomen is compatible with recent surgery. There a re some inflammatory changes within the fat along the anterior abdominal wall subcutaneous region. Th is is probably just related to the surgery. IMPRESSION: 1. Large hematoma which appears to involve the rectus abdominus muscle. There is also some free flui d within the abdomen, which could represent blood, but could be related to the recent . The free intraperitoneal air is also compatible with recent . 2. Enlarged uterus. 3. Scarred, atrophied left kidney. This report is in agreement with the preliminary report issued by [facility]. POS: [facility]
[2018-03-19 10:42] LABS: Hemoglobin 7.9 g/dL (12.0-16.0); Mean Corpuscular HGB CONC 33.7 g/dL (32.0-36.0); Mean Corpuscular Hemoglobin 29.8 pg (27.0-31.0); Mean Corpuscular Volume 88.4 fL (78.0-98.0); Mean Platelet Volume 9.9 fL (7.4-10.4); Platelet Count 160 thou/uL (130-400); RBC Distribution Width 13.9 % (11.5-14.5); Red Blood Cell (RBC) Count 2.65 mill/uL (4.20-5.40); White Blood Cell (WBC) Count 10.8 thou/uL (4.8-10.8)
[2018-03-19] MEDS ORDERED: PHENYLEPHRINE-NS 100 MCG/ML 10 ML SYRINGE ONE (13:49)
[2018-03-19] MEDS ORDERED: Dexamethasone 20 MG/5 ML VIAL ONE (13:49)
[2018-03-19] MEDS ORDERED: Succinylcholine Chloride 20 MG/ML 10 ml SYRINGE FS ONE (13:49)
[2018-03-19] MEDS ORDERED: Lidocaine 1% PF 5 ML VIAL ONE (13:49)
[2018-03-19] MEDS ORDERED: PROPOFOL 200 MG/20 ML VIAL ONE (13:49)
[2018-03-19] MEDS ORDERED: Glycopyrrolate 0.2 MG/ML 5 ML SYRINGE ONE (13:49)
[2018-03-19] MEDS ORDERED: Rocuronium Bromide 10 MG/ML (10ML VIAL) ONE (13:49)
[2018-03-19 15:58] LABS: Hemoglobin 7.8 g/dL (12.0-16.0); Mean Corpuscular HGB CONC 33.8 g/dL (32.0-36.0); Mean Corpuscular Volume 88.7 fL (78.0-98.0); Mean Platelet Volume 9.3 fL (7.4-10.4); Platelet Count 184 thou/uL (130-400); RBC Distribution Width 13.8 % (11.5-14.5); Red Blood Cell (RBC) Count 2.62 mill/uL (4.20-5.40); White Blood Cell (WBC) Count 11.9 thou/uL (4.8-10.8)
[2018-03-19] MEDS ORDERED: Lactated Ringer's 1,000 ML IV SCH (16:54)
[2018-03-19] MEDS ORDERED: Proctozone-HC 2.5% Cream 30 GM TUBE TOP PRN (16:58)
--- NOTE | 2018-03-19 18:18 | PDOC.OBPPN ---
FMR OB PN: Subj - Interval History Hospital Day: 3 Day: PPd/POD#2, POD#1 Chief Complaint: none Indentification: 22 yo s/p PLTCS on 03/17 and ex lap on 03/19 Interval History: Sitting in chair. Pain controlled. No bleeding. Lochia appropriate. FMR OB PN: Obj - Maternal Vital signs: BP: [129/61] HR: [121] RR: [20] Tmax: [98.2] Pox: [96]% on [RA] - Urine output I&O: 03/18/18 03/19/18 03/20/18 06:59 06:59 06:59 Intake Total 816 873 6943 Output Total 150 3400 3500 Balance 005 -6963 -2213 - Lochia Lochia: Mild. No clots. Appropriate. - Pain Management Pain scale: 4 Intervention: alternate pain modalities (BUILDING MAINTENANCE SUPERVISOR pump) FMR OB PN: Exam - Physical Exam General: NAD, awake, alert and oriented HEENT: normocephalic and atraumatic, PERRLA, EOMI, MMM, grossly normal hearing Neck: supple Chest: non-tender to palpation Deviation from normal: Increased HR. Regular. II/ systolic flow murmur. General: CTAB, no respiratory distress, good air movement, no rales/rhonchi, no wheezing, no retractions Abdomen: soft, fundus(cm) (Below -2), bowel sound present, no masses, no hernias Deviation from normal: Appropriately tender Musculoskeletal: normal gait and station, pulses present, FROM in all four extremities Skin: no rash : bandage intact, no erythema, no edema, appropriately tender Lymphatic: no unusual bruising or bleeding Psychiatric: intact recent and remote memory, good judgement and insight, normal mood and affect FMR OB PN: Data - Labs Lab results: Laboratory Results - last 24 hr 03/16/18 03/18/18 03/19/18 23:09 22:02 06:08 WBC 9.2 10.1 RBC 2.14 L 2.75 L Hgb 6.5 L 8.0 L Hct 19.3 L 24.1 L MCV 90.2 87.7 MCH 30.5 29.0 MCHC 33.8 33.1 RDW 12.6 13.6 Plt Count 168 163 MPV 10.1 10.2 PT INR APTT Fibrinogen Fibrin Degrad Products Fibrin Degrad Prod, Qt D-Dimer Blood Type O POSITIVE Antibody Screen NEGATIVE Crossmatch See Detail 03/19/18 03/19/18 03/19/18 06:12 10:13 15:45 WBC 10.8 11.9 H RBC 2.65 L 2.62 L Hgb 7.9 L 7.8 L Hct 23.4 L 23.2 L MCV 88.4 88.7 MCH 29.8 30.0 MCHC 33.7 33.8 RDW 13.9 13.8 Plt Count 159 160 184 MPV 9.9 9.3 PT 13.1 INR 1.0 APTT 30.7 Fibrinogen 496 H Fibrin Degrad Products ABNORMAL H Fibrin Degrad Prod, Qt >=5 & <20 H D-Dimer 5.60 H Blood Type Antibody Screen Crossmatch - Imaging Imaging: CT abdomen/pelvis: Postop changes. Discrete dense hematoma in the ventral pelvis measuring 18.4 x 7.6 x 9.6 cm. Dilute hemorrhage in bilateral pericolic gutters. FMR OB PN: A/P - Problem List (1) Post-term , 40-42 weeks of gestation Current Visit: Yes Status: Resolved Code(s): O48.0 - POST-TERM Comment: Delivered (2) Hemoperitoneum Current Visit: Yes Status: Acute Code(s): K66.1 - HEMOPERITONEUM Comment: Resolved. (3) Status post delivery Current Visit: Yes Status: Acute Code(s): Z98.891 - HISTORY OF UTERINE SCAR FROM PREVIOUS SURGERY Comment: 2/2 failed IOL on 03/17. Required vacuum assistance for delivery. (4) Urticaria Current Visit: Yes Status: Acute Code(s): L50.9 - URTICARIA, UNSPECIFIED Comment: Betadine reactive. Resolved. (5) Adult BMI 38.0-38.9 kg/sq m Current Visit: Yes Status: Acute Code(s): Z68.38 - BODY MASS INDEX (BMI) 38.0-38.9, ADULT Comment: Recommend lifestyle changes. (6) Intends to breastfeed Current Visit: Yes Status: Acute Code(s): [id number] - Comment: Consult (7) Blood loss anemia Current Visit: Yes Status: Acute Code(s): D50.0 - IRON DEFICIENCY ANEMIA SECONDARY TO BLOOD LOSS (CHRONIC) Comment: s/p 2u PRBC. Disposition: 22 yo female s/p PLTCS 2/2 failed IOL on 03/17/18 at 2255 HD#3 POD#2 - PLTCS POD#1 - ex lap 2/2 hemoperitoneum 1. s/p PLTCS 2/2 failed IOL with VA delivery: Routine pp care. Monitor for bowel activity. Risk for ilus. Pain controlled on BUILDING MAINTENANCE SUPERVISOR pump. 2. Hemoperitoneum s/p ex lap: EBL 1000 ml clot evacuated from rectus abdominus layer. Hysterotomy intact and dry. Doing well. Pain controlled. H&H/PLT stable. Transfuse as needed. Strict I/Os. d/c IVFs. 3. Urticarial Reaction: Betadine prep from ex lap. Added to Allergies. Continue steroids today. Added H2 and oral antihistamine x 24 hours. 4. Risk for ilus: On narcotics along with 2 abdominal surgeries. Monitor closely. Advance food as tolerated. Start bowel regiment. 5. Blood loss anemia: Trend. Transfuse as needed. Attempt goal of 11/14. Consider iron infusion prior to d/c to home. 6. Mild consumptive coagulopathy: Coags pos. PLT stable. s/p uFFP. Monitor. 7. Breast feeding 8. Contraception: Unsure 9. BMI 38: If unable to ambulate tomorrow will start Lovenox. Otherwise continue SCDs for DVT ppx. Discussion: Continue close inpatient monitoring. Trend labs today. Strict I/Os. Signature: Adán
[2018-03-20] MEDS: Ibuprofen 800 MG TAB PO SCH ×3 (05:48→23:04)
--- NOTE | 2018-03-20 07:14 | PDOC.PP ---
Post Progress Note Post Day #: 3 Subjective: NAEO. Patient states she feels much better this morning. Minimal pain noted. Controlled with FUR WEIGHER. Tolerating PO. Patient has been ambulating in the hallway. Denies lightheadedness, fever, chills, NVD, chest or abdominal pain, headache. PO intake tolerated: yes Flatus: yes Ambulation: yes Vital Signs (12 hours) Temp Pulse Resp BP Pulse Ox 03/20/18 03:31 97.7 F 87 18 105/53 L 03/20/18 00:05 98.1 F 99 18 115/57 L 03/19/18 20:36 98.0 F 99 20 132/64 97 Weight Weight 90.265 kg - Physical Examination General: NAD Cardiovascular: no m/r/g, RRR Respiratory: clear to auscultation bilaterally, non-labored breathing Abdominal: + bowel sounds, lochia (minimal), no distention, appropriately TTP Fundus firm & at: level of umbilicus Skin: CS incision dry & intact, no rash Neurological: no gross focal deficits Psychiatric: A&Ox3, normal affect Result Diagrams: 03/20/18 07:08 Additional Labs: Post Labs Blood Type O POSITIVE 03/16/18 23:09 Hep Bs Antigen Non-Reactive S/CO (NonReactive) 03/16/18 23:09 (1) Post-term , 40-42 weeks of gestation Code(s): O48.0 - POST-TERM Status: Resolved Comment: Delivered (2) Hemoperitoneum Code(s): K66.1 - HEMOPERITONEUM Status: Acute Comment: Resolved. (3) Adult BMI 38.0-38.9 kg/sq m Code(s): Z68.38 - BODY MASS INDEX (BMI) 38.0-38.9, ADULT Status: Acute Comment: Recommend lifestyle changes. (4) Intends to breastfeed Code(s): [id number] - Status: Acute Comment: Consult (5) Status post delivery Code(s): Z98.891 - HISTORY OF UTERINE SCAR FROM PREVIOUS SURGERY Status: Acute Comment: 2/2 failed IOL on 03/17. Required vacuum assistance for delivery. (6) Urticaria Code(s): L50.9 - URTICARIA, UNSPECIFIED Status: Acute Comment: Betadine reactive. Resolved. - Assessment/Plan 22 yo female s/p PLTCS 2/2 failed IOL on 03/17/18 at 2255 HD#4 POD#3 - PLTCS POD#2 - ex lap 2/2 hemoperitoneum s/p PLTCS 2/2 failed IOL with VA delivery Routine pp care. Monitor for bowel activity- bowel regimen in place. Risk for ilus. Pain controlled on FUR WEIGHER pump Hemoperitoneum s/p ex lap - EBL 1000 ml clot evacuated from rectus abdominus layer. Hysterotomy intact and dry. Doing well. Pain controlled. H&H/PLT stable. Transfuse as needed. Strict I/Os. d/c IVFs. Urticarial Reaction - Betadine prep from ex lap. Added to Allergies. s/p steroids. Added H2 and oral antihistamine x 24 hours. Risk for ilus - On narcotics along with 2 abdominal surgeries. Monitor closely. Advance food as tolerated. Bowel regiment started. Blood loss anemia - s/p 2uPRBCs and 1uFFP. Will continue to trend. Transfuse as needed. Attempt goal of 11/14. Consider iron infusion prior to d/c to home. - Hgb 6.7 on 03/20 - Will transfuse 2uPRBC. Recheck H&H 4 hours post infusion Mild consumptive coagulopathy - Coags pos. PLT stable. s/p 1 uFFP. Monitor. Breast feeding Contraception: Unsure BMI 38: Patient ambulating. Continue SCDs for DVT ppx. DISPO: likely dc in 1-2 days Case discussed with Dr. Sarabia Addendum - Attending - Attending Attestation Date/Time: 03/20/18 1318 I personally evaluated the patient and discussed the management with Dr. Berry I agree with the History, Examination, Assessment and Plan documented above with any addition or exceptions noted below. 22 yo female s/p PLTCS 2/2 failed IOL on 03/17/18 at 2255 HD#4 POD#3 - PLTCS POD#2 - ex lap 2/2 hemoperitoneum Patient doing well. Pain controlled. Able to ambulate without difficulty. No dizziness, CP, ELISE. Lochia mild. . Still on PCP pump this morning. +flatus. VS reviewed. Labs reviewed. Agree with PE above. Fundus firm. Appropriately tender. Incision clean and dry. No drainage or erythema. 1. s/p PLTCS 2/2 failed IOL with VA delivery: Routine pp care. Monitor for bowel activity. Risk for ilus. Switch from FUR WEIGHER to oral pain meds. 2. Hemoperitoneum s/p ex lap: EBL ~1000 ml clot evacuated from rectus abdominus layer. Hysterotomy intact and dry. Doing well. Pain controlled. H&H equilibrated to less than 7/28. Discussed symptoms. Due to risk and other complications will transfuse 2 u PRBCs throughout the day. Continue oral iron once off narcotics. Asymptomatic for the most part. Do not feel this is related to re-bleed. 3. Urticarial Reaction: Betadine prep from ex lap. Added to Allergies. Resolved. 4. Risk for ilus: On narcotics along with 2 abdominal surgeries. Monitor closely. Advance food as tolerated. Start bowel regiment. 5. Blood loss anemia: Trend. Transfuse as needed. Attempt goal of 11/14. Consider iron infusion prior to d/c to home. 6. Mild consumptive coagulopathy: Coags pos. PLT stable. s/p uFFP. Monitor. 7. Breast feeding 8. Contraception: Unsure 9. BMI 38: Ambulating well. Encourage lifestyle changes. Continue SCDs while in bed. Continue close inpatient monitoring. Strict I/Os. Will transfuse 2 uPRBCs. Switch to PO pain meds. Likely home tomorrow. ABrayMD
[2018-03-20 07:28] LABS: Hemoglobin 6.7 g/dL (12.0-16.0); Platelet Count 168 thou/uL (130-400)
[2018-03-20] MEDS: Famotidine 20 MG TAB PO SCH (08:56)
[2018-03-20] MEDS: Loratadine 10 MG TAB PO SCH (08:56)
[2018-03-20] MEDS: Prenatal Vitamin 1 TAB PO SCH (08:56)
[2018-03-20] MEDS: Docusate Calcium (SURFAK) 240 MG CAP PO SCH ×2 (08:57→23:04)
[2018-03-20] MEDS ORDERED: HYDROcodone/Acetaminophen 5/325 mg Tablet PO PRN ×4 (12:55→13:27)
[2018-03-20] MEDS ORDERED: Loratadine 10 MG TAB PO PRN (13:16)
[2018-03-20] MEDS ORDERED: Famotidine 20 MG TAB PO PRN (13:16)
[2018-03-20] MEDS ORDERED: Acetaminophen 325 MG TAB PO SCH ×2 (13:30→18:00)
--- NOTE | 2018-03-20 16:35 | ULT ---
SOFT TISSUE ULTRASOUND: HISTORY: Prior several days ago with the incision having to be reopened due to complication, with im aging over the region of the incision and site of pain. FINDINGS: There is some heterogeneous soft tissue echogenicity within this region, consistent with a history of prior surgery. There is no evidence for a drainable abscess. IMPRESSION: Heterogeneous echogenicity within the superficial soft tissues. No evidence for a drainable abscess. POS: [facility]
[2018-03-20] MEDS: Acetaminophen 500 MG TAB PO SCH (23:04)
[2018-03-21 05:38] LABS: Hemoglobin 9.2 g/dL (12.0-16.0)
[2018-03-21] MEDS: Acetaminophen 500 MG TAB PO SCH ×2 (06:00→13:54)
[2018-03-21] MEDS: Ibuprofen 800 MG TAB PO SCH ×2 (06:00→13:54)
--- NOTE | 2018-03-21 06:00 | PDOC.PP ---
Post Progress Note Post Day #: 4 Subjective: NAEO. Patient is resting comfortably and not wanting to be disturbed this morning in order to get rest. Per nursing, patient has been tolerating PO and passing flatus. Patient not complainng of lightheadedness, dizziness, NVD, headaches, vision changes, LE swelling, abdominal pain. Per nursing, patient has been up and ambulating. PO intake tolerated: yes Flatus: yes Ambulation: yes Vital Signs (12 hours) Temp Pulse Pulse Resp BP BP Pulse Ox 03/21/18 04:10 98.1 F 68 18 107/61 03/21/18 01:25 97.5 F L 69 18 100/59 L 96 03/20/18 22:08 97.5 F L 76 20 126/82 97 03/20/18 21:52 98.4 F 86 20 130/64 98 03/20/18 20:02 98.2 F 86 20 126/68 97 Weight Weight 90.265 kg - Physical Examination General: NAD Cardiovascular: no m/r/g, RRR Respiratory: clear to auscultation bilaterally, non-labored breathing Abdominal: + bowel sounds, no distention, appropriately TTP Skin: CS incision dry & intact, no rash Neurological: no gross focal deficits Psychiatric: A&Ox3, normal affect Result Diagrams: 03/21/18 05:28 Additional Labs: Post Labs Blood Type O POSITIVE 03/20/18 14:06 Hep Bs Antigen Non-Reactive S/CO (NonReactive) 03/16/18 23:09 (1) Hemoperitoneum Code(s): K66.1 - HEMOPERITONEUM Status: Acute Comment: Resolved. (2) Adult BMI 38.0-38.9 kg/sq m Code(s): Z68.38 - BODY MASS INDEX (BMI) 38.0-38.9, ADULT Status: Acute Comment: Recommend lifestyle changes. (3) Intends to breastfeed Code(s): [id number] - Status: Acute Comment: Consult (4) Status post delivery Code(s): Z98.891 - HISTORY OF UTERINE SCAR FROM PREVIOUS SURGERY Status: Acute Comment: 2/2 failed IOL on 03/17. Required vacuum assistance for delivery. (5) Urticaria Code(s): L50.9 - URTICARIA, UNSPECIFIED Status: Acute Comment: Betadine reactive. Resolved. - Assessment/Plan 22 yo female s/p PLTCS 2/2 failed IOL on 03/17/18 at 2255 HD#5 POD#3 - PLTCS POD#2 - ex lap 2/2 hemoperitoneum s/p PLTCS 2/2 failed IOL with [facility] delivery - Routine pp care. Monitor for bowel activity- bowel regimen in place. Risk for ilius. GLAZING [employer] pump dc'd. Pain controlled with norco and motrin. Hemoperitoneum s/p ex lap - EBL 1000 ml clot evacuated from rectus abdominus layer. Hysterotomy intact and dry. Doing well. Pain controlled. H&H/PLT stable. Transfuse as needed. Strict I/Os. d/c IVFs. Urticarial Reaction - Betadine prep from ex lap. Added to Allergies. s/p steroids. Added H2 and oral antihistamine x 24 hours. Risk for ilus - Previously on narcotics along with 2 abdominal surgeries. Monitor closely. Advance food as tolerated. Bowel regiment started. Blood loss anemia - s/p 4uPRBCs and 1uFFP. Will continue to trend. Transfuse as needed. Attempt goal of 11/14. Consider iron infusion prior to d/c to home. - Hgb 6.7 on 03/20 --> trended to 9.2 on 03/21/18. Will continue to monitor. Mild consumptive coagulopathy - Coags pos. PLT stable. s/p 1 uFFP. Monitor. Breast feeding Contraception: Unsure BMI 38: Patient ambulating. Continue SCDs for DVT ppx. DISPO: likely dc later today Addendum - Attending - Attending Attestation Date/Time: 03/21/18 9083 I personally evaluated the patient and discussed the management with Dr. Berry I agree with the History, Examination, Assessment and Plan documented above with any addition or exceptions noted below. 22 yo female s/p PLTCS 2/2 failed IOL on 03/17/18 at 2255 HD#5 POD#4 - PLTCS POD#3 - ex lap 2/2 hemoperitoneum Doing well. No complications or acute changes overnight. Denies CP, SOB, dizziness. Tolerated transfusion well. Lochia mild and appropriate. Pain controlled on PO meds. +flatus. Ambulation without complications. Breast feeding well. VS reviewed. Labs reviewed. Agree with PE above. Fundus firm. Appropriately tender. Incision clean and dry. No drainage or erythema. Macrina in place. 1. s/p PLTCS 2/2 failed IOL with [facility] delivery: Meeting milestones. Ok to d/c to home. 2. Hemoperitoneum s/p ex lap: EBL ~1000 ml clot evacuated from rectus abdominus layer. Hysterotomy intact and dry. Doing well. Pain controlled. 3. Urticarial Reaction: Betadine prep from ex lap. Added to Allergies. Resolved. s/p steroids. 4. Risk for ilus: Continue bowel regiment. Narcotics as needed at home for break through pain only. Continue exercising. 5. Blood loss anemia: s/p 4 u pRBC. Iron supplementation outpatient once routine bowel regiment established. 6. Mild consumptive coagulopathy: s/p uFFP. 7. Breast feeding 8. Contraception: LARC 9. BMI 38: Encourage lifestyle changes. Ok to d/c to home. Meeting milestones. Follow up on Wednesday at 1520 for OV and staple removal. Adán
[2018-03-21] MEDS: Prenatal Vitamin 1 TAB PO SCH (09:53)
[2018-03-21] MEDS: Docusate Calcium (SURFAK) 240 MG CAP PO SCH (09:54)
[2018-03-21 11:56] VITALS: BP 126/72; TEMP 98.4
[2018-03-21] MEDS ORDERED: ISOVUE-370 76%-LOCM 1 ML ONE (16:31)
== END 2018-03-21 13:57 | disposition home or self-care (01) | DRG 786 ==
LOC: L&D 03-16 21:15 → 3SW 03-18 02:07
PROVIDERS: ADMIT Family Medicine; ATTEND Family Medicine
PROC: 10D00Z1 Extraction of Products of Conception, Low, Open Approach (ICD-10-PCS; principal; 2018-03-17)
PROC: 10907ZC Drainage of Amniotic Fluid, Therapeutic from Products of Conception, Via Natural or Artificial Opening (ICD-10-PCS; 2018-03-17)
PROC: 3E033VJ Introduction of Other Hormone into Peripheral Vein, Percutaneous Approach (ICD-10-PCS; 2018-03-17)
PROC: 0J9B0ZZ Drainage of Perineum Subcutaneous Tissue and Fascia, Open Approach (ICD-10-PCS; 2018-03-19)
PROC: 0W9G0ZZ Drainage of Peritoneal Cavity, Open Approach (ICD-10-PCS; 2018-03-19)
PROC: 30233K1 Transfusion of Nonautologous Frozen Plasma into Peripheral Vein, Percutaneous Approach (ICD-10-PCS; 2018-03-19)
PROC: 30233N1 Transfusion of Nonautologous Red Blood Cells into Peripheral Vein, Percutaneous Approach (ICD-10-PCS; 2018-03-19)
DX: O48.0 Post-term pregnancy (principal); K66.1 Hemoperitoneum; D62 Acute posthemorrhagic anemia; O72.1 Other immediate postpartum hemorrhage; Z3A.41 41 weeks gestation of pregnancy; Z37.0 Single live birth; O62.1 Secondary uterine inertia; O99.02 Anemia complicating childbirth; L50.9 Urticaria, unspecified; R10.0 Acute abdomen; O90.89 Other complications of the puerperium, not elsewhere classified
CPT/HCPCS: 36415; 36430; 51702; 74177; 76999; 85014; 85018; 85027; 85049; 85300; 85362; 85379; 85384; 85610; 85730; 86780; 86850; 86900; 86901; 87340; C1726; J0595; J1100; J1200; J1885; J2001; J2250; J2274; J2405; J2590; J2704; J2920; J3010; J7050; P9016; P9047; P9059; Q9966

== ENCOUNTER 2018-03-24 08:47 | Emergency (ER) | payer OTHER ==
[2018-03-24 09:53] LABS: #Eosinphils 0.4 thou/uL (0.0-0.7); #Monocytes 0.8 thou/uL (0.11-0.59); #Neutrophils 7.2 thou/uL (1.40-6.50); %Basophils 0.2 % (0.0-1.0); %Eosinophils 3.5 % (0.0-10.0); %Lymphocytes 19.4 % (21.0-51.0); %Monocytes 7.3 % (0.0-10.0); %Neutrophils 69.6 % (42.0-75.0); Hemoglobin 11.2 g/dL (12.0-16.0); Mean Corpuscular HGB CONC 32.9 g/dL (32.0-36.0); Mean Corpuscular Hemoglobin 29.3 pg (27.0-31.0); Mean Platelet Volume 8.1 fL (7.4-10.4); Platelet Count 327 thou/uL (130-400); RBC Distribution Width 14.2 % (11.5-14.5); Red Blood Cell (RBC) Count 3.81 mill/uL (4.20-5.40); White Blood Cell (WBC) Count 10.3 thou/uL (4.8-10.8)
[2018-03-24 10:15] LABS: ALT (SGPT) 33 U/L (8-55); AST (SGOT) 21 U/L (5-34); Albumin 3.6 g/dL (3.5-5.0); Alkaline Phosphatase 140 U/L (40-150); Anion Gap 13 mmol/L (10-20); BUN (Urea Nitrogen) 9 mg/dL (7.0-18.7); Bilirubin, Total 0.8 mg/dL (0.2-1.2); Calc. Creatinine Clearance 0 mL/min (70-130); Calcium 9.7 mg/dL (7.8-10.44); Carbon Dioxide 25 mmol/L (22-29); Chloride 106 mmol/L (98-107); Estimated GFR-MDRD Greater than 90; Globulin 3.2 g/dL (2.4-3.5); Glucose 73 mg/dL (70-105); Protein, Total 6.8 g/dL (6.0-8.3); Sodium 140 mmol/L (136-145)
[2018-03-24 10:31] LABS: Blood, Urine Large (Negative); Clarity TURBID (Clear); Glucose, Urine (Dipstick) Negative (Negative); Protein, Urine (Dipstick) 100 mg/dL (Neg-Trace); Specific Gravity, Urine 1.008 (1.002-1.036); pH, Urine 7.5 (5.0-9.0)
[2018-03-24 10:32] LABS: Bacteria/HPF None Seen HPF (None Seen); Squamous Epithelial 0-3 HPF (0-3)
[2018-03-24 10:35] LABS: Pathc Cast-AUWi Flag 142.03 (0-2.49); Yeast-AUWi Flag 1182.9 (0-25.0)
[2018-03-24 10:43] LABS: Nitrite Unable to Interpret (Negative)
[2018-03-24 10:44] LABS: Bilirubin Unable to Interpret (Negative); RBC/HPF GREATER THAN 50-TNTC HPF (0-3); Urobilinogen UNABLE TO INTERPRET mg/dL (0.2-1.0)
[2018-03-24 10:45] LABS: Leukocyte Unable to Interpret (Negative)
[2018-03-24 10:47] LABS: Hyaline Casts/LPF NONE SEEN LPF (0-3 Hyaline); Other Casts/LPF None Seen LPF (0-3 Hyaline); Yeast-All Forms None Seen HPF (None Seen)
[2018-03-24 11:22] LABS: PTT 41.2 SEC (22.9-36.1); Prothrombin Time 13.2 SEC (12.0-14.7)
--- NOTE | 2018-03-24 12:16 | ULT ---
ULTRASOUND OF ABDOMINAL WALL: Date: 03/24/18 HISTORY: Patient has history of a , with bleeding from the site of incision. COMPARISON: Ultrasound examination of 03/20/[address] study of 03/20/18. FINDINGS: Real-time imaging along the area of the incision does now show a complex fluid density collection in this region. The fluid is more prominent to the right of midline. On the right side, the fluid collec tion is at least 5.0 cm in length and 1.6 cm in depth. On the left side, the fluid density collection is slightly more complex and appears slightly smaller. IMPRESSION: Complex fluid density collection along the incision site. The complex fluid appears more prominent to the right of midline. POS: [facility]
== END 2018-03-24 13:52 | disposition home or self-care (01) ==
LOC: ERS 08:47
DX: O90.2 Hematoma of obstetric wound (principal)
CPT/HCPCS: 76999; 80053; 81003; 81015; 85025; 85384; 85610; 85730; 86850; 86900; 86901; 87086

== ENCOUNTER 2018-03-25 15:19 | Observation (INO) | payer OTHER ==
--- NOTE | 2018-03-25 17:41 | ULT ---
ULTRASOUND SOFT TISSUE ABDOMINAL WALL 03/25/18 HISTORY: Hematoma evacuation. COMPARISON: Abdominal ultrasound from the prior day. FINDINGS: Near the incision, there is a hypoechoic fluid collection suggesting seroma and hematoma. This is dec reased in size from the comparison examination measuring up to 3 cm in transverse dimension, previous ly over 5 cm. Overlying soft tissues are swollen. There is a decreased AP dimension which is less lizzy n 1 cm. IMPRESSION: Size decrease seroma/hematoma of the anterior abdominal wall. POS: [facility]
--- NOTE | 2018-03-25 17:46 | PDOC.FPRHP ---
- History of Present Illness Chief Complaint: Bleeding History of Present Illness: Mrs. William Flores presents with bleeding from her incision site She presents from clinic after having an ultrasound to evaluate for abdominal hematoma. She had a LTCS on 03/17 without complication the following day she began experiencing pain and swelling scan showed hematoma formation. Exploratory lap was performed and hematoma evacuated. She was sent home on 03/21. On 03/24 she awoke with large amount of blood soaking sheets and towel. She was instructed to head to ED. She denies SOB, syncope, palpitations, or dizziness. ED Course: CBC, coag studies, US - Allergies/Adverse Reactions Allergies Allergy/AdvReac Type Severity Reaction Status Date / Time povidone-iodine Allergy Intermediate Hives Verified 03/26/18 00:37 [From Betadine] soap [From Betadine] Allergy Intermediate Hives Verified 03/26/18 00:37 - Home Medications Medication Instructions Recorded Confirmed Type PNV No.118/Iron Fumarate/FA 1 tab PO DAILY 03/16/18 03/17/18 History [ 19 Chewable Tablet] Acetaminophen [Tylenol Extra 500 mg PO Q8HR #90 tab 03/21/18 Rx Strength] Bisacodyl [Dulcolax] 5 mg PO DAILY PRN #14 tab 03/21/18 Rx HYDROcodone Bit/APAP 5/325 [[place]] 1 tab PO Q4H PRN tab 03/21/18 Rx HYDROcodone Bit/APAP 5/325 [[place]] 2 tab PO Q4H PRN tab 03/21/18 Rx Ibuprofen [Motrin] 800 mg PO Q8HR #90 tab 03/21/18 03/26/18 Rx Polyethylene Glycol 3350 [Miralax] 17 gm PO DAILY #10 pk 03/21/18 Rx Vitamin 1 tab PO DAILY tab 03/21/18 03/26/18 Rx - History PMHx: none PSHx: LTCS FHx: DMII Social: No TAD - Review of Systems General: denies: fever/chills, weight/appetite/sleep changes Eyes: reports: vision changes. denies: eye pain Respiratory: denies: cough, shortness of breath Cardiovascular: denies: chest pain, palpitation Gastrointestinal: denies: vomiting, diarrhea Genitourinary: denies: incontinence Skin: reports: lesions. denies: rashes Musculoskeletal: reports: pain, tenderness Neurological: denies: numbness, syncope - Vital signs BP: 121/62 HR: 74 RR: 20 Tmax: 98.8 Pox: 98% on RA Wt: 89.36kg - Physical Exam Constitutional: NAD, awake, alert and oriented HEENT: normocephalic and atraumatic, grossly normal vision, grossly normal hearing Neck: supple Chest: no-tender to palpation, no lesions Heart: RRR, normal S1/S2, other (3/5 systolic murmur) Lungs: CTAB, no respiratory distress Abdomen: soft, non-tender, other (incision c/d/i, no erythema or edema. bruising present) Musculoskeletal: normal structure, normal tone Neurological: no focal deficit, CN II-XII intact Skin: no rash/lesions, good turgor Heme/Lymphatic: other (unsual bleeding) Psychiatric: normal mood and affect FMR H&P: Results - Labs Result Diagrams: 03/25/18 17:37 03/25/18 17:37 FMR H&P: A/P - Problem List (1) Post-op bleeding Current Visit: Yes Status: Acute Code(s): [id number] - (2) Hemoperitoneum Current Visit: No Status: Acute Code(s): K66.1 - HEMOPERITONEUM Comment: Resolved. - Plan Hemoperitoneum - US reveals decreased in size from previous US - Hb stable at 12.5 - wound vac to be placed - odered txa - 4pk ffp to be given for increased INR Post op bleeding - unusual continuation of bleeding - no Fhx of coagulation disorders - coag studies reveal elevated fibrin degradation products Code: full ppx: freq ambulation dispo: place wound vac, give TXa. continue to monitor FMR H&P: Upper Level - Pertinent history 22F presents forbleeding from her incision site, s/p section on 03/17. After surgery, she had complication of hematoma formation after which exploratory lab was done and hematoma evacuated. On 03/21, she was discharge home. On evening of 03/24, she experience bleeding. On 03/25, she presented to ER for evaluation. An US was done, preliminary read says there is a hematoma present, but smaller then previous one. Patient denies symptoms of anemia including syncope, dizziness, palpitation or SOB. - Pertinent findings Gen: Grossly alert and oriented HEENT: Normocephalic, hearing and vision grossly intact, moist appearing mucosal membrane, midline trachea CV: RRR with systolic murmur 2/6, Resp: CTA bilat Abd: Bruising on right lower pannus. C section macrina are in place. No discharge or bleeding - Plan Date/Time: 03/25/18 1740 1. Hematoma - Seen on US and with history of bleeding - Hgb is stable at 12.5 - Will start TXA - Wound vac will be placed - Consider FFP if INR over 2 2. Coagulopathy - Suspected due to multiple bleeding episode, though patient denies any issue with that outside of this - Will obtain coag studies. I, [Doug Gillette], have evaluated this patient and agree with findings/plan as outlined by buying intern resident. Pertinent changes/additions are listed here. Addendum - Attending - Attending Attestation Date/Time: 03/25/18 8524 I personally evaluated the patient and discussed the management with Dr. Rojo and Dr. Gillette I agree with the History, Examination, Assessment and Plan documented above with any addition or exceptions noted below. 22 yo female s/p PLTCS for failed IOL on 03/17 with ex lap on 03/19 for hemopertonieum now returns 2 days in a row for continue subcutaneous bleeding. Patient presented on 03/24/18 for significant bleeding at home from incision. Noted to saturate bedding, clothing, and towel. Noted to have increased vaginal bleeding also. Was evaluated in ER as well as by myself. Noted to have 5 x 1 cm subcu hematoma yesterday (no evidence of fluid collection or hematoma on day of discharge on 03/21 via sono) with prolonged PTT. Patient monitored in ER for 3 hours. No continued bleeding. Labs improved since discharge on 03/21. Pressure bandage along with abdominal binder ordered. Patient sent home from ER with repeat sono on 03/25 and follow up in clinic with PCP on 03/25. Patient presented to sono appointment earlier today. Once pressure bandage removed significant bleeding followed. Patient sent to ER for evaluation. Patient denies dizziness, pain, SOB, palpitations. Bandage not saturated overnight per patient. No complications once she left ER on 03/24/18. VS reviewed. Bleeding studies and imaging pending. NAD RRR Bruising to lower abdomen superior to incision. Mild tenderness to palpation. No erythema. Bleeding from right side of incision with pressure. Macrina in place. No pus or drainage otherwise noted. 1. Wound complication: Pt with continued subcutaneous bleeding. Sono pending. Risk for infection due to hematoma formation and continued bleeding as well as abnormal/incomplete healing. Will admit and place wound vac. 2. Bleeding disorder: No family or personal history. Patient previous has never had surgical procedure. Reports easy bruising but has never been concerned. Normal menses (3 reg tampons x2 days, 2 reg tampons x 3 days) that last 5 days. Bleeding studies collected. Concern for coag cascade abnormality von willibrand or factor VIII. Will give dose of TXA. Wound vac to be placed to monitor bleeding and assist with closure. Trend sono for collection. Monitor for s/sx of infection due to risk. Admit. Monitor. Likely home tomorrow if stable. Adán
[2018-03-25 17:51] LABS: #Basophils 0.1 thou/uL (0.0-0.2); #Eosinphils 0.4 thou/uL (0.0-0.7); #Lymphocytes 2.6 thou/uL (1.20-3.40); #Monocytes 0.6 thou/uL (0.11-0.59); #Neutrophils 7.1 thou/uL (1.40-6.50); %Basophils 0.6 % (0.0-1.0); %Eosinophils 3.8 % (0.0-10.0); %Lymphocytes 23.9 % (21.0-51.0); %Monocytes 5.4 % (0.0-10.0); %Neutrophils 66.4 % (42.0-75.0); Hemoglobin 12.5 g/dL (12.0-16.0); Mean Corpuscular HGB CONC 32.6 g/dL (32.0-36.0); Mean Corpuscular Volume 89.1 fL (78.0-98.0); Mean Platelet Volume 7.9 fL (7.4-10.4); Platelet Count 461 thou/uL (130-400); RBC Distribution Width 13.9 % (11.5-14.5); Red Blood Cell (RBC) Count 4.31 mill/uL (4.20-5.40); White Blood Cell (WBC) Count 10.7 thou/uL (4.8-10.8)
[2018-03-25 17:54] LABS: Platelet Count 461 thou/uL (130-400)
[2018-03-25 17:55] LABS: Platelet Count 461 thou/uL (130-400)
[2018-03-25 17:57] LABS: Fibrinogen 807 mg/dL (253-463)
[2018-03-25 17:58] LABS: PTT 33.6 SEC (22.9-36.1); Prothrombin Time 13.1 SEC (12.0-14.7)
[2018-03-25 17:59] LABS: D-Dimer Test 2.65 *mcg/mL (0.27-0.43)
[2018-03-25] MEDS ORDERED: Tranexamic Acid 1,000 MG in Sodium Chloride 0.9% 250 ML 250 ML IVPB SCH (18:15)
[2018-03-25 18:16] LABS: ALT (SGPT) 29 U/L (8-55); AST (SGOT) 18 U/L (5-34); Albumin 4.2 g/dL (3.5-5.0); Alkaline Phosphatase 160 U/L (40-150); Anion Gap 13 mmol/L (10-20); BUN (Urea Nitrogen) 16 mg/dL (7.0-18.7); Bilirubin, Total 0.7 mg/dL (0.2-1.2); Calc. Creatinine Clearance 0 mL/min (70-130); Carbon Dioxide 25 mmol/L (22-29); Chloride 106 mmol/L (98-107); Estimated GFR-MDRD Greater than 90; FSP-Qualitative ABNORMAL (Normal); FSP-Semiquantitative >=5 & <20 mcg/mL (Less than 5); Globulin 3.8 g/dL (2.4-3.5); Glucose 97 mg/dL (70-105); Potassium 3.6 mmol/L (3.5-5.1); Sodium 140 mmol/L (136-145)
[2018-03-25] MEDS ORDERED: Tranexamic Acid 1,000 MG in Sodium Chloride 0.9% 100 ML IVPB SCH (18:30)
[2018-03-25] MEDS ORDERED: Ondansetron ODT 4 MG TAB SL PRN (19:10)
[2018-03-25] MEDS ORDERED: Ondansetron PF 4 MG/2 ML Vial IVP PRN (19:10)
[2018-03-25] MEDS ORDERED: HYDROcodone/Acetaminophen 5/325 mg Tablet PO PRN (19:17)
[2018-03-25] MEDS ORDERED: Ondansetron ODT 4 MG TAB PO PRN (19:17)
[2018-03-25] MEDS ORDERED: Senokot S 8.6-50 MG TAB PO PRN (19:17)
[2018-03-25] MEDS ORDERED: Bisacodyl 5 MG TAB PO PRN (19:17)
[2018-03-25] MEDS: Sodium Chloride 0.9% 1,000 ML IV SCH (19:29)
[2018-03-25 22:33] VITALS: BMI 37.0
[2018-03-26] MEDS: Sodium Chloride 0.9% 1,000 ML IV SCH (05:50)
--- NOTE | 2018-03-26 08:57 | PDOC.FM ---
- Subjective Subjective: patient reports doing well overnight. No fevers, vomiting, diarrhea. Endorses bleeding from incision with some tenderness, improved from yesterday. Also describes light vaginal bleeding. Currently breast feeding during interview. - Objective Vital Signs & Weight: Vital Signs (12 hours) Temp Pulse Resp BP BP Pulse Ox 03/26/18 08:05 97.8 F 87 12 128/70 98 03/26/18 04:35 98.6 F 81 16 122/69 03/26/18 01:05 98.4 F 81 16 128/59 L Weight Weight 88.904 kg I&O: 03/25/18 03/26/18 03/27/18 06:59 06:59 06:59 Intake Total 1100 Balance 1100 Result Diagrams: 03/25/18 17:37 03/25/18 17:37 Phys Exam - Physical Examination Constitutional: NAD HEENT: moist MMs Respiratory: clear to auscultation bilateral Cardiovascular: RRR Gastrointestinal: soft Neurological: moves all 4 limbs Psychiatric: normal affect Deviation from normal: bruising of skin surrounding c/s incision with no expansion -: wound vac in place over incision, no erythema or swelling Dx/Plan (1) Post-op bleeding Code(s): [id number] - Status: Acute (2) Hemoperitoneum Code(s): K66.1 - HEMOPERITONEUM Status: Acute (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 Coello on Wed or next week Addendum - Attending - Attending Attestation Date/Time: 03/26/18 4913 I personally evaluated the patient and discussed the management with Dr. Donohue I agree with the History, Examination, Assessment and Plan documented above with any addition or exceptions noted below - Patient without complaints. No abdominal pain. Wound vac in place. Afebrile VSS. A/P: 1) Hematoma - wound vac in place with no further visible bleeding. Plan to d/c home today.
[2018-03-26 12:49] VITALS: BP 126/75; TEMP 98.2
== END 2018-03-26 13:30 | disposition home or self-care (01) ==
LOC: ERS 15:19 → 3SW 19:15
PROVIDERS: ADMIT Student in an Organized Health Care Education/Training Program; ATTEND Student in an Organized Health Care Education/Training Program
DX: L76.32 Postprocedural hematoma of skin and subcutaneous tissue following other procedure (principal); K66.1 Hemoperitoneum; D68.8 Other specified coagulation defects; Z91.09 Other allergy status, other than to drugs and biological substances; Z79.1 Long term (current) use of non-steroidal anti-inflammatories (NSAID); Z79.899 Other long term (current) drug therapy; Z98.890 Other specified postprocedural states
CPT/HCPCS: 76705; 80053; 85025; 85049; 85245; 85246; 85300; 85362; 85379; 85384; 85576; 85610; 85730; 96361; 96374; G0378; J7050